=== PATIENT | male | born 1950 | race Caucasian/White ===

== ENCOUNTER 2019-03-07 12:15 | Day surgery (SDC) | payer OTHER ==
[~2019-03-07] VITALS: Ht 182.9 cm; Wt 73.3 kg
[~2019-03-07 12:15] MED LIST: ACET325 PO; ACET500 PO; ACYC400 PO; ACYC800 PO; ALBU90OI61 INH; ANTIFUNGAL30 GM TOP; ASPI81CH PO; ATOR40TA PO; CYAN500 PO; Flonase 0.05% N16 GM; LC-445 GM; LISI5 PO; LOPE2C PO; Lopressor 25 mg25 MG PO; Loradamed10 MG PO; MELA3 PO; MIRT15 PO; MUSE500 MCG; NORPRAMIN PO; OMEPRAZOLE MAGN20 MG PO; PYRI100 PO; SILD50TA PO; TAMS.4ER PO; TEMA15 PO; THIA100I PO; TRAM50 PO; TRAZ100 PO
== END 2019-03-07 15:23 | disposition home or self-care (01) ==
LOC: ORSCSDS 12:15
PROVIDERS: Internal Medicine Gastroenterology
PROC: 0DBP8ZX Excision of Rectum, Via Natural or Artificial Opening Endoscopic, Diagnostic (ICD-10-PCS; principal; 2019-03-07 13:45)
PROC: 0DB68ZX Excision of Stomach, Via Natural or Artificial Opening Endoscopic, Diagnostic (ICD-10-PCS; principal; 2019-03-07 13:45)
PROC: 0DBM8ZX Excision of Descending Colon, Via Natural or Artificial Opening Endoscopic, Diagnostic (ICD-10-PCS; principal; 2019-03-07 13:45)
PROC: 0DBL8ZX Excision of Transverse Colon, Via Natural or Artificial Opening Endoscopic, Diagnostic (ICD-10-PCS; principal; 2019-03-07 13:45)
DX: R93.3 Abnormal findings on diagnostic imaging of other parts of digestive tract (principal); K50.90 Crohn's disease, unspecified, without complications; K22.10 Ulcer of esophagus without bleeding; K44.9 Diaphragmatic hernia without obstruction or gangrene; K29.70 Gastritis, unspecified, without bleeding; D12.3 Benign neoplasm of transverse colon; K63.5 Polyp of colon; K62.1 Rectal polyp; I10 Essential (primary) hypertension; I25.10 Atherosclerotic heart disease of native coronary artery without angina pectoris; J44.9 Chronic obstructive pulmonary disease, unspecified; Z87.891 Personal history of nicotine dependence; Z79.899 Other long term (current) drug therapy; Z79.82 Long term (current) use of aspirin
CPT/HCPCS: 88305; 88342; J2704; J7120

== ENCOUNTER 2020-01-03 20:24 | Emergency (ER) | payer OTHER ==
[~2020-01-03] VITALS: Ht 180.3 cm; Wt 77.1 kg
== END 2020-01-03 22:00 | disposition home or self-care (01) ==
LOC: ER 20:24
DX: S61.214A Laceration without foreign body of right ring finger without damage to nail, initial encounter (principal); Z79.899 Other long term (current) drug therapy; Z88.0 Allergy status to penicillin; Z87.891 Personal history of nicotine dependence; W31.9XXA Contact with unspecified machinery, initial encounter
CPT/HCPCS: 12001; 73130; 99283-25